=== PATIENT | female | born 1945 | race Caucasian/White ===

== ENCOUNTER 2017-02-15 19:52 | Emergency (ER) | payer OTHER ==
[2017-02-15 20:24] VITALS: BP 141/66
[2017-02-15] MEDS ORDERED: Sulfamethox/Trimethoprim DS 800/160* TAB PO ONE ×2 (21:20)
[2017-02-15] MEDS ORDERED: Phenazopyridine TAB* 100 MG PO ONE ×2 (21:21)
--- NOTE | 2017-02-15 21:28 | UC ---
Reji Guo Alfonso, scribed for Simón Mcdonnell MD on 02/15/17 at 2122 . Complaint Female HPI - HPI Summary HPI Summary: This patient is a 71 year old F presenting to [facility] with a chief complaint of dysuria since one week ago. The CC is described as burning. Pt rates the pain 8/ 10 in severity. Symptoms aggravated and alleviated by nothing. Sx not relieved by cranberry and OTC medications. Pt reports increased urinary frequency. Pt denies abdominal pain. PSHx of oophorectomy. Patient medications reviewed this visit. - History Of Current Complaint Chief Complaint: UCGU Stated Complaint: POSS UTI Time Seen by Provider: 02/15/17 21:14 Hx Obtained From: Patient Onset/Duration: Sudden Onset, Lasting Weeks - 1, Still Present Timing: Constant Severity Initially: Severe Severity Currently: Severe Pain Intensity: 8 Pain Scale Used: 0-10 Numeric Character: Burning Aggravating Factor(s): Nothing Alleviating Factor(s): Nothing Associated Signs And Symptoms: Negative: Fever - Allergies/Home Medications Allergies/Adverse Reactions: Allergies Allergy/AdvReac Type Severity Reaction Status Date / Time Penicillins [PCN] Allergy Nausea Verified 02/15/17 20:25 Home Medications: Home Medications Atenolol TAB* [Tenormin TAB* 25 MG] 25 mg PO DAILY 02/15/17 [History Confirmed 02/15/17] Clopidogrel Bisulfate [Plavix] 75 mg PO 02/15/17 [History] Fenofibrate [Lofibra] 160 mg PO 02/15/17 [History] Gabapentin CAP(*) [Neurontin 100 mg CAP(*)] 200 mg PO TID 02/15/17 [History Confirmed 02/15/17] Levothyroxine TAB* [Synthroid TAB*] 75 mcg PO 0800 02/15/17 [History Confirmed 02/15/17] Montelukast Sodium TAB* [Singulair TAB*] 10 mg PO DAILY 02/15/17 [History Confirmed 02/15/17] Oxybutynin TAB* [Ditropan TAB*] 2.5 mg PO BID 02/15/17 [History Confirmed ] PMH/Surg Hx/FS Hx/Imm Hx - Surgical History Surgical History: Yes Surgery Procedure, Year, and Place: oopherectomy - Family History Known Family History: Positive: Cardiac Disease, Other - Cancer - Social History Alcohol Use: Rare Substance Use Type: None Smoking Status (MU): Heavy Every Day Tobacco Smoker Type: Cigarettes Review of Systems Constitutional: Other - Negative fever Gastrointestinal: Other - Negative abd pain Genitourinary: Dysuria - Burning, Frequency - Increased All Other Systems Reviewed And Are Negative: Yes Physical Exam Triage Information Reviewed: Yes Appearance: Well-Appearing, No Pain Distress Vital Signs: Initial Vital Signs Temp 98.9 F 02/15/17 20:10 Pulse 88 02/15/17 20:10 Resp 18 02/15/17 20:10 BP 141/66 02/15/17 20:10 Pulse Ox 99 02/15/17 20:10 Vital Signs Reviewed: Yes Eyes: Positive: Other: - EOMI CE ENT: Positive: Normal ENT inspection Neck: Positive: Supple, Nontender Respiratory: Positive: Chest non-tender, Lungs clear, Normal breath sounds Cardiovascular: Positive: RRR Abdomen Description: Positive: Nontender, Soft Bowel Sounds: Positive: Present Musculoskeletal: Positive: Strength Intact, ROM Intact Neurological: Positive: Alert Psychological: Positive: Age Appropriate Behavior Skin Exam: Normal Complaint Female Dx - Course Course Of Treatment: RX BACTRIM/PYRIDIUM - Differential Dx/Diagnosis Provider Diagnoses: UTI Discharge - Discharge Plan Condition: Stable Disposition: HOME Prescriptions: Phenazopyridine 200 mg (NF) [Pyridium 200 MG tab] 200 mg PO TID PRN #8 tab PRN Reason: Pain Sulfamethox/Trimethoprim DS* [Bactrim DS 800/160 TAB*] 1 tab PO BID #18 tab Patient Education Materials: Urinary Tract Infection in Women (ED) Referrals: No Primary Care Phys,NOPCP [Primary Care Provider] - The documentation as recorded by the Reji mccormick Alfonso accurately reflects the service I personally performed and the decisions made by me, Simón Mcdonnell MD.
== END 2017-02-15 21:41 | disposition home or self-care (01) ==
LOC: UCEAST 19:52
DX: N39.0 Urinary tract infection, site not specified (principal)
CPT/HCPCS: 81003; 87077; 87086; 87186; 99203; A9270-GY; G0463

== ENCOUNTER 2017-03-17 11:54 | Emergency (ER) | payer OTHER ==
[2017-03-17 12:23] VITALS: BP 136/62
--- NOTE | 2017-03-17 14:24 | UC ---
Jensen Guo Angela, scribed for Sandeep Rodriguez MD on 03/17/17 at 1304 . Complaint Female HPI - HPI Summary HPI Summary: This pt is a 71 y/o female presenting to [facility] c/o dyysuria, urinary urgency and frequency for the past week. Pt reports she has a hx of recurrent UTIs and her last one was in February 16, 2017. Pt denies abd pain, back pain, fever, chills, dark colored urine, hematuria, pain over kidneys. Pt is anticoagulated on Plavix. - History Of Current Complaint Chief Complaint: UCGU Stated Complaint: URINARY ISSUE Time Seen by Provider: 03/17/17 12:50 Hx Obtained From: Patient Onset/Duration: Lasting Days Timing: Constant Aggravating Factor(s): Nothing Alleviating Factor(s): Nothing Associated Signs And Symptoms: Negative: Fever, Back Pain, Vaginal Bleeding/ Discharge, Vaginal Discharge, Nausea, Vomiting(# Of Episodes =), Genital Swelling - Allergies/Home Medications Allergies/Adverse Reactions: Allergies Allergy/AdvReac Type Severity Reaction Status Date / Time Penicillins [PCN] Allergy Nausea Verified 03/17/17 12:18 PMH/Surg Hx/FS Hx/Imm Hx - Surgical History Surgical History: Yes Surgery Procedure, Year, and Place: oopherectomy - Family History Known Family History: Positive: Cardiac Disease, Other - Cancer - Social History Alcohol Use: Rare Substance Use Type: None Smoking Status (MU): Heavy Every Day Tobacco Smoker Type: Cigarettes Amount Used/How Often: 1/2 ppd Review of Systems Constitutional: Negative Skin: Negative Eyes: Negative ENT: Negative Respiratory: Negative Cardiovascular: Negative Gastrointestinal: Negative Genitourinary: Dysuria, Frequency, Urgency Musculoskeletal: Negative Neurological: Negative All Other Systems Reviewed And Are Negative: Yes Physical Exam Triage Information Reviewed: Yes Vital Signs: Initial Vital Signs Temp 97.8 F 03/17/17 12:19 Pulse 68 03/17/17 12:19 Resp 16 03/17/17 12:19 BP 136/62 03/17/17 12:19 Pulse Ox 100 03/17/17 12:19 Vital Signs Reviewed: Yes - Additional Comments The patient is well-nourished in no acute distress and in no acute pain. The skin is warm and dry and skin color reflects adequate perfusion. HEENT: The head is normocephalic and atraumatic. The pupils are equal and reactive. The conjunctivae are clear and without drainage. Nares are patent and without drainage. Neck is supple with full range of motion and non-tender. There are no carotid bruits. There is no neck vein distension. Respiratory: Chest is non-tender. Lungs are clear to auscultation and breath sounds are symmetrical and equal. Cardiovascular: Hear is regular rate and rhythm. There is no murmur or rub auscultated. There is no peripheral edema and pulses are symmetrical and equal. Abdomen: The abdomen is soft and non-tender. Musculoskeletal: There is no back pain noted. Extremities are non-tender with full range of motion. There is no CVA tenderness. Neurological: Patient is alert and oriented to person, place and time. The patient has symmetrical motor strength in all four extremities. Psychiatric: The patient has an appropriate affect and does not exhibit any anxiety or depression. Complaint Female Dx - Course Course Of Treatment: Pt's urine is consistent with a UTI. Pt will be discharged with Doxycycline as on her last sensitivity she had 2 organisms which were susceptible to Sulfamethox/Trimethoprim. - Differential Dx/Diagnosis Differential Diagnosis/HQI/PQRI: Urinary Tract Infection Provider Diagnoses: UTI. Elevated BP Discharge - Discharge Plan Condition: Stable Disposition: HOME Prescriptions: DOXYcycline CAP(*) [DOXYcycline 100MG CAP(*)] 100 mg PO BID #20 cap Patient Education Materials: Urinary Tract Infection in Women (ED) Referrals: No Primary Care Phys,NOPCP [Primary Care Provider] - Additional Instructions: Your blood pressure was elevated at this visit. Please follow up with your primary care provider in [place] to have your blood pressure reading and assure symptoms are improving. The documentation as recorded by the Jensen mccormick Angela accurately reflects the service I personally performed and the decisions made by , Sandeep Rodriguez MD.
== END 2017-03-17 13:12 | disposition home or self-care (01) ==
LOC: UCEAST 11:54
DX: N39.0 Urinary tract infection, site not specified (principal); Z87.440 Personal history of urinary (tract) infections; R03.0 Elevated blood-pressure reading, without diagnosis of hypertension; Z88.0 Allergy status to penicillin; F17.210 Nicotine dependence, cigarettes, uncomplicated
CPT/HCPCS: 81003; 87077; 87086; 99212; G0463